=== PATIENT | male | born 1995 | race American Indian/Alaskan Native ===

== ENCOUNTER 2016-09-08 13:57 | Emergency (ER) | payer MEDICAID ==
[2016-09-08 14:21] VITALS: O2SAT 100
[2016-09-08] MEDS ORDERED: Sodium Chloride 0.9% 1,000 ML IV STA (14:43)
--- NOTE | 2016-09-08 14:46 | ED PDOC ---
HPI: Abdomen Time Seen by Provider: 09/08/16 14:38 Chief Complaint (Nursing): GI Problem History Per: Patient (Epigastric abd pain assoc with nausea vomiting and diarrhea x 4 days. No fever or bleeding.) Onset/Duration Of Symptoms: Days (4) Current Symptoms Are (Timing): Still Present Context: Food Severity: Moderate Pain Scale Rating Of: 2 Location Of Pain/Discomfort: Epigastric Quality Of Discomfort: Sharp Associated Symptoms: Nausea, Vomiting, Diarrhea. denies: Fever Past Medical History Vital Signs: Last Vital Signs Temp 98.3 F 09/08/16 14:18 Pulse 82 09/08/16 14:18 Resp 18 09/08/16 14:18 BP 120/70 09/08/16 14:18 Pulse Ox 100 09/08/16 14:45 - Medical History PMH: Asthma - Family History Family History: States: Unknown Family Hx - Home Medications Home Medications: Ambulatory Orders Medication Instructions Recorded Naproxen [Naprosyn] 500 mg PO BID PRN #30 tab 04/25/16 Famotidine [Pepcid] 20 mg PO Q12 #20 tab 09/08/16 Ondansetron [Zofran] 4 mg PO Q8H #10 tab 09/08/16 - Allergies Allergies/Adverse Reactions: Allergies Allergy/AdvReac Type Severity Reaction Status Date / Time No Known Allergies Allergy Verified 04/25/16 15:28 Review of Systems ROS Statement: Except As Marked, All Systems Reviewed And Found Negative Gastrointestinal: Positive for: Nausea, Vomiting, Abdominal Pain, Diarrhea Physical Exam - Reviewed Nursing Documentation Reviewed: Yes Vital Signs Reviewed: Yes - Physical Exam Appears: Positive for: Non-toxic, No Acute Distress Head Exam: Positive for: ATRAUMATIC, NORMAL INSPECTION, NORMOCEPHALIC Skin: Positive for: Normal Color, Warm, DRY Eye Exam: Positive for: EOMI, Normal appearance, PERRL ENT: Positive for: Other (Mucous membranes dry) Neck: Positive for: Normal, Painless ROM Cardiovascular/Chest: Positive for: Regular Rate, Rhythm Respiratory: Positive for: CNT, Normal Breath Sounds Gastrointestinal/Abdominal: Positive for: Bowel Sounds, Soft, Tenderness ( epigastric) Back: Positive for: Normal Inspection Extremity: Positive for: Normal ROM Neurologic/Psych: Positive for: Alert, Oriented - Laboratory Results Result Diagrams: 09/08/16 15:00 09/08/16 15:00 - ECG O2 Sat by Pulse Oximetry: 100 - Progress Re-evaluation Time: 17:10 Condition: Improved ([place] PO) Disposition - Clinical Impression Clinical Impression: Gastroenteritis - Patient ED Disposition Is Patient to be Admitted: No Counseled Patient/Family Regarding: Studies Performed, Diagnosis, Need For Followup, Rx Given - Disposition Referrals: [facility] [Outside] Disposition: Routine/Home Disposition Time: 17:11 Condition: FAIR Prescriptions: Famotidine [Pepcid] 20 mg PO Q12 #20 tab Ondansetron [Zofran] 4 mg PO Q8H #10 tab Instructions: Gastroenteritis (ED)
[2016-09-08 15:13] LABS: BASO % 0.8 % (0.0-2.0); EOS # 0.1 K/uL (0.0-0.7); EOS % 2.1 % (0.0-4.0); HEMATOCRIT 43.8 % (35.0-51.0); LYMPH # 1.4 K/uL (1.0-4.3); LYMPH % 31.6 % (20.0-40.0); MEAN CELL VOLUME 88.2 fl (80.0-94.0); MEAN CORPUSCULAR HEMOGLOBIN 29.8 pg (27.0-31.0); MEAN CORPUSCULAR HGB CONC 33.8 g/dL (33.0-37.0); MEAN PLATELET VOLUME 6.8 fl (7.2-11.7); MONO # 0.4 K/uL (0.0-0.8); MONO % 10.2 % (0.0-10.0); NEUT # 2.4 K/uL (1.8-7.0); NEUT % 55.3 % (50.0-75.0); NRBC % 0.1 % (0.0-0.0); RED CELL DISTRIBUTION WIDTH 13.6 % (11.5-14.5); WHITE BLOOD COUNT 4.4 K/uL (4.8-10.8)
[2016-09-08 15:27] LABS: ALB/GLOB RATIO 1.7 (1.0-2.1); ALKALINE PHOSPHATASE 48 U/L (38-126); ALT/SGPT 28 U/L (21-72); AST/SGOT 32 U/L (17-59); BILIRUBIN,TOTAL 0.5 mg/dl (0.2-1.3); BLOOD UREA NITROGEN 12 mg/dl (9-20); CALCIUM 9.9 mg/dL (8.4-10.2); CARBON DIOXIDE 27 mmol/L (22-30); CHLORIDE 105 mmol/L (98-107); GFR AFRICAN-AMERICAN > 60; GLUCOSE,RANDOM 92 mg/dL (75-110); POTASSIUM 4.1 MMOL/L (3.6-5.0); SODIUM 143 mmol/l (132-148); TOTAL PROTEIN 7.4 G/DL (6.3-8.2)
[2016-09-08 18:21] VITALS: BP 122/65; PULSE 81; RESP 16; TEMP 98
== END 2016-09-08 18:20 | disposition home or self-care (01) ==
LOC: H.ER 13:57
DX: K52.9 Noninfective gastroenteritis and colitis, unspecified (principal); R11.2 Nausea with vomiting, unspecified; J45.909 Unspecified asthma, uncomplicated

== ENCOUNTER 2017-05-23 11:21 | Emergency (ER) | payer MEDICAID, OTHER ==
[2017-05-23 11:40] VITALS: BP 127/77; PULSE 77; RESP 16; TEMP 98.2; O2SAT 99
[2017-05-23] MEDS ORDERED: Naproxen 500 MG TAB PO STA (13:06)
[2017-05-23] MEDS ORDERED: Naproxen 500 MG TAB PO ONE (13:21)
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
--- NOTE | 2017-05-23 14:54 | RAD ---
PROCEDURE: Radiographs of the Lumbar Spine. HISTORY: pain COMPARISON: No prior. FINDINGS: BONES: Normal alignment. No listhesis. No fracture. DISC SPACES: Unremarkable. OTHER FINDINGS: None. IMPRESSION: Unremarkable radiographs of the lumbar spine.
== END 2017-05-23 18:55 | disposition home or self-care (01) ==
LOC: H.ER 11:21
DX: S16.1XXA Strain of muscle, fascia and tendon at neck level, initial encounter (principal); M54.9 Dorsalgia, unspecified; V43.52XA Car driver injured in collision with other type car in traffic accident, initial encounter; Y92.410 Unspecified street and highway as the place of occurrence of the external cause; F17.200 Nicotine dependence, unspecified, uncomplicated

== ENCOUNTER 2017-05-27 10:49 | Emergency (ER) | payer MEDICAID, OTHER ==
[2017-05-27 11:25] VITALS: BP 125/68; PULSE 97; RESP 16; TEMP 97; O2SAT 100
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
[2017-05-27] MEDS ORDERED: Lidocaine 5% Patch TD STA (12:39)
[2017-05-27] MEDS ORDERED: Lidocaine 5% Patch TD ONE (12:46)
== END 2017-05-27 13:31 | disposition home or self-care (01) ==
LOC: H.ER 10:49
DX: M54.5 Low back pain (principal); M54.2 Cervicalgia; F17.210 Nicotine dependence, cigarettes, uncomplicated
CPT/HCPCS: 96372; 99282; J1885

== ENCOUNTER 2017-06-03 14:03 | Emergency (ER) | payer MEDICAID, OTHER ==
[2017-06-03 14:22] VITALS: BP 104/58; PULSE 82; RESP 18; TEMP 99.3; O2SAT 99
[2017-06-03] MEDS ORDERED: Naproxen 500 MG TAB PO STA (14:43)
--- NOTE | 2017-06-03 14:46 | ED PDOC ---
HPI: Dental Pain/Injury Time Seen by Provider: 06/03/17 14:42 Chief Complaint (Nursing): Abnormal Skin Integrity Chief Complaint (Provider): Facial swelling History Per: Patient History/Exam Limitations: no limitations Additional Complaint(s): 22 year old male presents to the ER complaining right-sided facial swelling for 1 day. He denies any dental pain. Patient reports he was seen here for a similar complaint, and took medications as directed, but now swelling has returned. No fever or chills. PMD: [facility] Past Medical History Reviewed: Historical Data, Nursing Documentation, Vital Signs Vital Signs: Last Vital Signs Temp 99.3 F 06/03/17 14:20 Pulse 82 06/03/17 14:20 Resp 18 06/03/17 14:20 BP 104/58 L 06/03/17 14:20 Pulse Ox 99 06/03/17 14:20 - Medical History PMH: Asthma, Gastritis - Family History Family History: States: Unknown Family Hx - Home Medications Home Medications: Ambulatory Orders Medication Instructions Recorded Naproxen [Naprosyn] 500 mg PO BID PRN #30 tab 04/25/16 Famotidine [Pepcid] 20 mg PO Q12 #20 tab 09/08/16 Ondansetron [Zofran] 4 mg PO Q8H #10 tab 09/08/16 Esomeprazole Magnesium [Nexium 20 mg PO DAILY #21 ecc 10/01/16 24Hr] Cyclobenzaprine [Cyclobenzaprine 10 mg PO TID PRN #15 tab 05/23/17 HCl] Naproxen 500 mg PO BID #30 tab 05/23/17 Meloxicam [Mobic] 7.5 mg PO DAILY PRN #30 tab 05/27/17 Methocarbamol [Robaxin] 500 mg PO TID PRN #30 tab 05/27/17 Naproxen 1 tab PO BID PRN #14 tab 06/03/17 Penicillin VK [Penicillin VK Tab] 500 mg PO Q6H #28 tab 06/03/17 - Allergies Allergies/Adverse Reactions: Allergies Allergy/AdvReac Type Severity Reaction Status Date / Time No Known Allergies Allergy Verified 04/25/16 15:28 Review of Systems ROS Statement: Except As Marked, All Systems Reviewed And Found Negative Constitutional: Negative for: Fever, Chills ENT: Positive for: Other (Right facial swelling, no dental pain) Physical Exam - Reviewed Nursing Documentation Reviewed: Yes Vital Signs Reviewed: Yes - Physical Exam Appears: Positive for: Non-toxic, No Acute Distress Head Exam: Positive for: ATRAUMATIC, NORMOCEPHALIC Skin: Positive for: Normal Color, Warm, Dry Eye Exam: Positive for: EOMI, Normal appearance, PERRL ENT: Positive for: Other (Tenderness to right lower mandible, no swelling or obvious abscess formation) Neck: Positive for: Normal, Painless ROM Neurologic/Psych: Positive for: Alert, Oriented - ECG O2 Sat by Pulse Oximetry: 99 (RA) Pulse Ox Interpretation: Normal Medical Decision Making Medical Decision Making: Time: 14:43 Initial Plan: --Naproxen 500 mg PO Upon provider evaluation patient is medically stable, and requires no further treatment in the ED at this time. Patient will be discharged home with Rx for penicillin and naproxen. Counseling was provided and all questions were answered regarding diagnosis and need for follow up with dentist. There is agreement to discharge plan. Return if symptoms persist or worsen. Scribe Attestation: Documented by Blaire Marx, acting as a scribe for Yomi Fitzpatrick PA-C Provider Scribe Attestation: All medical record entries made by the Scribe were at my direction and personally dictated by me. I have reviewed the chart and agree that the record accurately reflects my personal performance of the history, physical exam, medical decision making, and the department course for this patient. I have also personally directed, reviewed, and agree with the discharge instructions and disposition. Disposition - Clinical Impression Clinical Impression: Pain, dental - Patient ED Disposition Is Patient to be Admitted: No Counseled Patient/Family Regarding: Diagnosis, Need For Followup, Rx Given - Disposition Referrals: Jad Teague DDS [Staff Provider] - Disposition: Routine/Home Disposition Time: 15:01 Condition: FAIR Prescriptions: Naproxen 1 tab PO BID PRN #14 tab PRN Reason: Pain, Moderate (4-7) Penicillin VK [Penicillin VK Tab] 500 mg PO Q6H #28 tab Instructions: Toothache (ED) Forms: [facility] (Yoruba)
== END 2017-06-03 15:30 | disposition home or self-care (01) ==
LOC: H.ER 14:03
DX: K08.89 Other specified disorders of teeth and supporting structures (principal); J45.909 Unspecified asthma, uncomplicated